=== PATIENT | male | born 1990 | race Caucasian/White ===

== ENCOUNTER 2023-02-24 02:56 | Outpatient (CLI) | payer BC, SELFPAY ==
[2023-03-09 00:54] LABS: Result Summary NEGATIVE; Specimen WB Whole Blood
== END 2023-02-24 02:57 | disposition home or self-care (01) ==
LOC: LBO 02:58
PROVIDERS: PCP Family Medicine; Visit Provider Advanced Practice Midwife
DX: Z13.228 Encounter for screening for other metabolic disorders (principal)
CPT/HCPCS: 36415; 81220; 81222